=== PATIENT | female | born 1975 | race Caucasian/White ===

== ENCOUNTER 2016-08-14 06:38 | Outpatient (CLI) | payer OTHER ==
[2016-08-14] VITALS (12 sets, daily range): BP systolic 91–124; BP diastolic 51–68
[~2016-08-14] VITALS: Ht 180.3 cm; Wt 128.4 kg
[~2016-08-14 06:38] MED LIST: AMLO5TAB2 PO; ASPI-482 PO; BUME2TAB PO; CARV25TA PO; CLOP75TA PO; FENO54TA PO; FERR-26 PO; GABA400C PO; INSU100C SQ; INSU100V13 SQ; LOSA50TA6 PO; MORP30TA83 PO; MULT1TAB52 PO; OXYC-250 PO; POTA20TA4 PO; RANO500T2 PO
[2016-08-14] MEDS ORDERED: IV NORMAL SALINE 1000ML BAG 1,000 ML IV SCH (06:56)
[2016-08-14] MEDS ORDERED: OMEG1CAP30 PO (07:08)
[2016-08-14 07:19] LABS: CALCIUM 9.2 mg/dL (8.5-10.1); CREATININE 1.3 mg/dL (0.6-1.0); GFR 45.1
[2016-08-14] MEDS ORDERED: IODIXANOL 320 MG/ML 100 ML VIAL. ONE (07:24)
[2016-08-14 07:25] LABS: PROTHROMBIN TIME PATIENT 12.8 SEC (11.7-14.0)
[2016-08-14] MEDS ORDERED: LIDOCAINE 2% 20 ML VIAL. ONE (07:28)
[2016-08-14] MEDS ORDERED: HEPARIN for ARTERIAL LINE 1,500 ML ONE (07:28)
[2016-08-14 07:31] LABS: HEMATOCRIT 35.7 % (36.0-47.0); HEMOGLOBIN 11.3 g/dL (12.0-15.5); RED BLOOD COUNT 4.21 x10^6/uL (3.50-5.40); RED CELL DISTRIBUTION WIDTH 15.3 % (11.5-14.5)
[2016-08-14] MEDS ORDERED: MIDAZOLAM HCL 2 MG/2 ML VIAL. ONE (08:02)
[2016-08-14] MEDS ORDERED: FENTANYL PF 100 MCG/2 ML VIAL. ONE (08:03)
[2016-08-14] MEDS ORDERED: HEPARIN for IV BOLUS 10,000 UNIT/10 ML VIAL. ONE (08:39)
[2016-08-14] MEDS ORDERED: MIDAZOLAM HCL 2 MG/2 ML VIAL. IV ONE (08:45)
[2016-08-14] MEDS ORDERED: IODIXANOL 320 MG/ML 100 ML VIAL. IART ONE (08:45)
[2016-08-14] MEDS ORDERED: FENTANYL PF 100 MCG/2 ML VIAL. IV ONE (08:45)
[2016-08-14] MEDS ORDERED: HEPARIN for IV BOLUS 10,000 UNIT/10 ML VIAL. IV ONE (08:45)
[2016-08-14] MEDS ORDERED: LIDOCAINE 2% 20 ML VIAL. IJ ONE (08:45)
[2016-08-14] MEDS ORDERED: NITROGLYCERIN SUBLINGUAL 0.4 MG BOTTLE OF 25. SL PRN (09:15)
[2016-08-14] MEDS ORDERED: 0.9 % SODIUM CHLORIDE 10 ML DISP.SYRIN. IV PRN (09:15)
--- NOTE | 2016-08-14 09:43 | CARD ---
APPROVED REPORT Patient StatusCLI Building And Grounds Supervisor: RT Tiburcio Procedure(s) performed: FEMORAL RUNOFF 1.9 mins of Fluoro 49mL Visipaque 58.02mGy [id number] HISTORY The patient is a 40 year-old female with a history of : previous AL, renal failure without dialysis, previous CHF, diabetes mellitus with treatment, coronary artery disease, hypertension, dyslipidemia. INDICATION FOR PROCEDURE The indication(s) include : Bilateral claudication. PROCEDURE NARRATIVE After appropriate informed consent and discussion of the risks and benefits the patient was brought t o the catheterization laboratory and placed in a supine position. The bilateral groins were prepped and draped in usual sterile fashion. Under 2% lidocaine local anesthesia a 5 [place] introducer sheat h was placed in the left common femoral artery via the Seldinger technique using an 18-gauge needle a nd a J-tipped guidewire. Next, a 5 [place] Omni flush catheter was advanced to the distal descending aorta and digital subtraction angiography with peripheral runoff was performed to evaluate for arteri al disease. Baseline aortic pressures were obtained. Peripheral angiography findings: Aorta: No significant disease. RCIA: No significant disease. REIA: No significant disease. RIIA: Moderate diffuse disease. RCFA: No significant disease. RPROF: No significant disease. RSFA: No significant disease. RPOP: No significant disease. RAT: Approximately 40% proximal stenosis. Provides one vessel run-off to the foot. RPER: Suspicious for a mid vessel occlusion. 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 LCIA: No significant disease. AMY: No significant disease. LIIA: Moderate diffuse disease. LCFA: No significant disease. LSFA: No significant disease. LPROF: No significant disease. LPOP: No significant disease. LAT: Severe proximal 80% stenosis. LPER: Severe mid to distal vessel disease of up to 70% LPT: Appears to be congenitally diminutive. At case completion the left femoral sheath was removed and a Angio-Seal device was deployed and hemos tasis was achieved and there were no immediate complications. Conclusion 1. Moderate to severe below the knee disease on the left side. 2. [place] category 3 claudication. Recommendations Aggressive Medical Therapy Continue medical therapy for now given lack of significant ulcers and right > left claudication.
--- NOTE | 2016-08-14 10:26 | RAD ---
APPROVED REPORT Patient Location : OUT-PATIENT Indications Lower Extremity Edema : Bilateral Findings Bilateral grayscale images of the superficial venous structures including the right and left greater and lesser saphenous veins do not demonstrate any evidence of thrombosis on limited imaging. Spectra l waveforms and color Doppler did not reveal any evidence of reflux in the greater and lesser sapheno us veins. The right great saphenous vein measures 0.937 m of the left great saphenous vein measures 0.62 cm. Critical Notification Critical Value: No <Conclusion> 1. Negative for reflux in the bilateral greater and lesser saphenous veins.
== END 2016-08-14 12:28 | disposition home or self-care (01) ==
LOC: CCL 06:38
PROVIDERS: ATTEND Internal Medicine Cardiovascular Disease
DX: I73.9 Peripheral vascular disease, unspecified (principal); I25.10 Atherosclerotic heart disease of native coronary artery without angina pectoris; I21.3 ST elevation (STEMI) myocardial infarction of unspecified site; E11.9 Type 2 diabetes mellitus without complications; I10 Essential (primary) hypertension; E78.5 Hyperlipidemia, unspecified; I50.9 Heart failure, unspecified; N19 Unspecified kidney failure; E78.00 Pure hypercholesterolemia, unspecified; I95.9 Hypotension, unspecified; Z90.49 Acquired absence of other specified parts of digestive tract; K21.9 Gastro-esophageal reflux disease without esophagitis; M19.90 Unspecified osteoarthritis, unspecified site; Z51.0 Encounter for antineoplastic radiation therapy
CPT/HCPCS: 36415; 75630; 80048; 85027; 85610; 85730; 93970; C1769; C1771; C1892; G0269; J2250; J3010; J7030